=== PATIENT | female | born 1980 | race Caucasian/White ===

== ENCOUNTER 2025-03-06 12:03 | Outpatient (AMB) | payer OTHER, SELFPAY ==
--- NOTE | 2025-03-06 12:16 | A.OFFPC_ITS ---
Vital Signs 03/06/25 12:20 Height 5 ft 3 in Weight 197 lb BMI 34.9 BP 132/80 Blood Pressure Location Lt brachial Position Sitting Respiration 18 Pulse 89 Pulse Source Pulse Oximeter Temp 98.0 F Temp Source Oral Pulse Oximetry (%) 98 Oxygen Delivery Method Room Air Intake Visit Reasons: New patient visit PE Intake Note: Pt is here today for New patient visit PE. Allergies No Known Allergies Allergy (Verified 03/06/25 12:21) Medication List - Last Reconciled 03/06/25 by Guerline Carr MD No Known Home Meds Tobacco use date assessed: 03/06/25 Dental Screening Dental Screen Date: 03/06/25 Did you have a dental visit in the last 12 months?: Yes Did you have a dental problem in the last 6 months where you did not have access to dental care?: No Was dental information given to patient?: Patient has dentist HPI New patient visit PE HPI Details Pt presents for ELECTROMECHANIC PE. Patient reports irregular menses and intermittent hot flashes for the last 3 months. She used to see a photocopying equipment repairer but not for a few years. Patient has a IUD for a few years [facility] Medical History (Updated 03/06/25 @ 12:55 by Guerline Carr MD) Annual physical exam Surgical History (Updated 03/06/25 @ 12:25 by GABY Fernandes) No pertinent past surgical history Family History (Updated 03/06/25 @ 12:27 by GABY Fernandes) Father No problems noted. Mother Diabetes Sister Hypertension Social History (Updated 03/06/25 @ 12:59 by Guerline Carr MD) Household Members Other:: , 1 daughter, exercise 4 x days a week, Housing: Apartment Patient Tobacco Use Status: Never used Tobacco e-Cigarette/Vaping Use: Never Used service: No Current occupational status: employed Cognitive needs: No Hearing needs: No Vision needs: No Questionnaire PHQ-9 Over the last 2 weeks, how often have you been bothered by any of the following problems? 1. Little interest or pleasure in doing things: not at all 2. Feeling down, depressed, or hopeless: not at all 3. Trouble falling or staying asleep, or sleeping too much: not at all 4. Feeling tired or having little energy: not at all 5. Poor appetite or overeating: not at all 6. Feeling bad about yourself - or that you are a failure or have let yourself or your family down: not at all 7. Trouble concentrating on things, such as reading the newspaper or watching television: not at all 8. Moving or speaking so slowly that other people could have noticed. Or the opposite - being so fidgety or restless that you have been moving around a lot more than usual: not at all 9. Thoughts that you would be better off or of hurting yourself in some way: not at all Total score: 0 Depression Screening Interpretation: Negative Depression Screening Done: Yes 02494 - PHQ-9 Billing: Yes Source: Developed by Drs. Ney Bangura, Amy Marie, José Luis Mistry and colleagues, with an educational frida from [employer]. Thrive Questionnaire Date Thrive assessed: 03/06/25 I am a: Patient What is your living situation today?: I have a steady place to live Within the past 12 months, did the food you bought not last and you didn't have the money to get more?: Never true Within the past 12 months, did you worry whether your food would run out before you got money to buy more?: Never true Do you have trouble paying for medicines?: No Do you have trouble getting transportation to medical appointments?: No Do you have trouble paying your heating and electricity bill?: No Do you have trouble taking care of your child, family member or friend?: No Do you have trouble with day-to-day activities such as bathing, preparing meals, shopping, managing finances, etc.?: No Are you currently unemployed and looking for a job?: No Are you interested in more education?: No Please select the resources that you would like help with: None Currently or been in a relationship where the following occur: No concerns reported THRIVE Score: 0 AUDIT C Alcohol Use Questionnaire (AUDIT-C) 1. How often do you have a drink containing alcohol?: 2-4 times a month 2. How many drinks containing alcohol do you have on a typical day when you are drinking?: 1 or 2 3. How often do you have six or more drinks on one occasion?: Never Total Score: 2 GERA-7 AMB Questionnaire GERA-7 Date GERA - 7 assessed: 03/06/25 Feeling nervous, anxious, or on edge: 2 = More than half the days Not being able to stop or control worryin = More than half the days Worrying too much about different things: 2 = More than half the days Trouble relaxin = More than half the days Being so restless that it is hard to sit still: 0 = Not at all Becoming easily annoyed or irritable: 1 = Several days Feeling afraid as if something awful might happen: 0 = Not at all Total GERA-7 score (0-4 normal; 5-9 mild; 10-14 moderate; 15-21 severe): 9 Source: Developed by Drs. Ney Bangura, Amy Marie, José Luis Mistry and colleagues, with an educational frida from [employer]. GERA-7 Assessment Billing GERA-7 Assessment Tool: GERA-7 Assessment 77253 Review of Systems Const All systems reviewed & are unremarkable except as noted in HPI and below Reports no additional complaints Eyes Reports no additional complaints ENT Reports no additional complaints Card Reports no additional complaints Resp Reports no additional complaints GI Reports no additional complaints Reports no additional complaints Musc Reports no additional complaints Physical exam (Primary Care) Vital Signs: Last Vital Signs Temp 98.0 F 03/06/25 12:20 Pulse 89 03/06/25 12:20 Resp 18 03/06/25 12:20 BP 132/80 03/06/25 12:20 Pulse Ox 98 03/06/25 12:20 Oxygen Delivery Method Room Air 03/06/25 12:20 BMI result Body Mass Index 34.9 Tobacco/Smoking Status: Tobacco use Status Tobacco use date assessed 03/06/25 03/06/25 12:31 Patient Tobacco Use Status Never used Tobacco 03/06/25 12:59 e-Cigarette/Vaping Use Never Used 03/06/25 12:59 PHQ-9: PHQ-9 Score PHQ-9: Total score 0 03/06/25 12:50 Depression Screening Interpretation: Negative Thrive Assessment: Date of Thrive Assessment Date Thrive assessed 03/06/25 03/06/25 12:20 Currently or been in a relationship where the following occur: No concerns reported Const General: no acute distress HENMT Head: Yes normal to inspection Ears: hearing grossly normal bilaterally General nose exam: Normal external nose present Face and sinus: Yes normal facial exam Throat: Yes posterior oropharynx normal Eyes General: appearance normal, both eyes and all related structures Neck Neck: Yes no lymphadenopathy and Yes supple Resp Effort & Inspection: normal respiratory effort Auscultation: clear to auscultation bilaterally Cardio Rhythm: regular rhythm Heart sounds: S1 normal heart sound present and S2 normal heart sound present GI Inspection: Yes normal to inspection Palpation (GI): Soft to palpation Percussion: Yes normal to percussion Auscultation: normal bowel sounds Coding Level of Care Code New Pt Prev Care 40-64y(49068) Diagnoses Annual physical exam Z00.00 IUD (intrauterine device) in place Z97.5 Additional Codes GERA-7 Assessment Billing - GERA-7 Assessment Tool: GERA-7 Assessment 16491 ([id number]) PHQ-9 - 29662 - PHQ-9 Billing: Yes ([id number]) Assessment & Plan Assessment & Plan (1) Annual physical exam: Code(s): Z00.00 - Encounter for general adult medical examination without abnormal findin gs Category: Medical Plan: Well-balanced diet regular physical activity discussed with the patient. She declined mammogram. Patient will return for fasting blood work. She will be referred to groundwater monitoring technician for pelvic exam and IUD (2) IUD (intrauterine device) in place: Code(s): Z97.5 - Presence of (intrauterine) contraceptive device Category: Medical Plan: Follow-up with groundwater monitoring technician Orders: Orders Comprehensive [address]. Panel Fast Today E66.3 - Overweight, Z00.00 - Encounter for general adult medical examination without abnormal findings Lipid Panel Today E66.3 - Overweight, Z00.00 - Encounter for general adult medical examination without abnormal findings Complete Blood Count Auto Diff Today E66.3 - Overweight, Z00.00 - Encounter for general adult medical examination without abnormal findings TSH reflex Free T4 Today E66.3 - Overweight, Z00.00 - Encounter for general adult medical examination without abnormal findings UA w Microscopic Today E66.3 - Overweight, Z00.00 - Encounter for general adult medical examination without abnormal findings Hemoglobin A1c Today E66.3 - Overweight, Z00.00 - Encounter for general adult medical examination without abnormal findings Referrals DEBRANDER Referral Z97.5 - Presence of (intrauterine) contraceptive device
[2025-03-06 12:20] VITALS: BP 132/80; PULSE 89; RESP 18; TEMP 36.7; O2SAT 98; BMI 34.9
== END 2025-03-06 14:38 | disposition home or self-care (01) ==
LOC: HO.HMCC 12:04
PROVIDERS: PCP Internal Medicine; Visit Provider Internal Medicine
DX: Z00.00 Encounter for general adult medical examination without abnormal findings (principal); Z97.5 Presence of (intrauterine) contraceptive device

== ENCOUNTER 2025-03-06 13:08 | Outpatient (REF) | payer OTHER, SELFPAY ==
[2025-03-06 15:59] LABS: MANUAL DIFF FLAG NO
[2025-03-06 16:18] LABS: Appearance Urine Clear; Glucose Urine UA Negative (Negative); PH 5.5 (5.0-9.0); Specific Gravity - Urine 1.010 (1.005-1.025); UMIC TRIGGER UA YES
[2025-03-06 16:22] LABS: Hematocrit 43.4 % (37.0-47.0); Hemoglobin 14.3 g/dl (12.0-16.0); Imm Gran Abs Auto 0.03 X10*3/uL (0.00-0.03); Imm Gran Pct Auto 0.3 % (0.0-0.4); Lymphocytes Absolute Auto 2.3 X10*3/uL (1.2-4.9); Mean Corpuscular HGB Conc 32.9 g/dl (31.0-35.0); Mean Corpuscular Hemoglobin 26.2 pg (27.0-33.0); Mean Corpuscular Volume 79.5 fL (80.0-98.0); NRBC Abs Auto 0.000 X10*3/uL (0.0-0.012); NRBC Pct Auto 0.0 /100WBC (0.0-0.2); Platelet Count 171 X10*3/uL (160-400); Red Blood Count 5.46 X10*6/uL (4.20-5.50); White Blood Count 9.3 X10*3/uL (4.8-10.8)
[2025-03-06 16:41] LABS: Hemoglobin A1C 144.5098 umol/L; Total Hemoglobin (HGBA1C) 3752.8328 umol/L
[2025-03-06 16:43] LABS: Alanine Aminotransferase 26 U/L (0-31); Albumin Level 4.6 g/dL (3.5-5.0); Alkaline Phosphatase 68 U/L (39-117); Anion Gap 12 (12-20); Aspartate Amino Transferase 21 U/L (5-31); Blood Urea Nitrogen 11 mg/dL (9-16); Calcium 9.4 mg/dL (8.4-10.2); Carbon Dioxide 25 mmol/L (22-29); Chloride 107 mmol/L (96-108); Cholesterol 146 mg/dL (<200); Estimated Glomerular Filt Rate > 60; HDL Cholesterol 45 mg/dL (>40); Potassium 3.9 mmol/L (3.3-5.1); Sodium 140 mmol/L (135-145); Total Protein 7.2 g/dL (6.5-8.0); Triglycerides 115 mg/dL (<150)
== END 2025-03-06 13:09 | disposition home or self-care (01) ==
LOC: HO.HMGCLDS 13:08
PROVIDERS: PCP Internal Medicine; Visit Provider Internal Medicine
DX: Z00.00 Encounter for general adult medical examination without abnormal findings (principal); E66.3 Overweight; Z68.34 Body mass index [BMI] 34.0-34.9, adult; Z97.5 Presence of (intrauterine) contraceptive device; Z13.1 Encounter for screening for diabetes mellitus; Z13.30 Encounter for screening examination for mental health and behavioral disorders, unspecified; Z13.31 Encounter for screening for depression
CPT/HCPCS: 36415; 80053; 80061; 81001; 83036; 84443; 85025; 96127

== ENCOUNTER 2025-04-19 07:00 | Outpatient (RCR) | payer OTHER, SELFPAY ==
--- NOTE | 2025-04-22 11:11 | MHC.PT.DC ---
[facility] [place] Office [place] [facility] [place] [facility] [address] Danna Anthony [address] [phone] F: [phone] F: [phone] F: [phone] F: [phone] Physical Therapy Discharge Report Diagnosis: This is a 44 yo female presenting to skilled PT with a script for sciatica. Date of Surgery: Date of Evaluation: 04/01/25 Date of Discharge: 04/22/25 Treatments to Date: 6 Cancellations to Date: 0 No Shows to Date: 0 Discharge Status: Achieved Goals Improved Function Independent with HEP Patient Elected to Stop Discharge Summary: Patient came to 6 sessions of PT. She has improved her pain, function and is I in her program. She will be going to [place] for over a month so will be DC'd. She was educated on calling our office if anything changes or needs a new eval. Patient is happy with progress, pain free and has met her goals. DC to [facility]P. Electronically signed by: Trina Perea, PT Please sign and return to therapist. Thank you for your referral.
== END 2025-04-22 11:12 | disposition home or self-care (01) ==
LOC: HO.PTCHIC 07:00
PROVIDERS: PCP Internal Medicine; Visit Provider Internal Medicine
DX: M54.51 Vertebrogenic low back pain (principal)
CPT/HCPCS: 97110; 97140; 97161